=== PATIENT | female | born 1960 | race Caucasian/White ===

== ENCOUNTER → 2016-04-12 | Outpatient (CLI) | payer BC ==
[~2016-04-12] MED LIST: IBUP-103 PO; MULT-506 PO; ROLAIDS PO
[2016-04-12 14:18] LABS: BLOOD UREA NITROGEN 14 mg/dl (7-18); BUN/CREATININE RATIO 18.2 (10-20); CALCIUM 9.5 mg/dl (8.5-10.1); CARBON DIOXIDE 28 mmol/L (21-32); CHLORIDE 106 mmol/L (98-107); CHOLESTEROL 173 mg/dl (0-200); CREATININE 0.74 mg/dl (0.60-1.20); GLUCOSE 83 mg/dl (70-99); POTASSIUM 4.2 mmol/L (3.5-5.1); SODIUM 142 mmol/L (136-145)
[2016-04-12 14:45] LABS: CHOLESTEROL/HDL RATIO 2.8; HDL CHOLESTEROL 61 mg/dl; LDL CHOLESTEROL CALCULATED 98 mg/dl; TRIGLYCERIDES 69 mg/dl (0-150); VERY LOW DENSITY LIPOPROT CALC 14 mg/dl
== END | disposition home or self-care (01) ==
LOC: C.LABPVFM 09:58
PROVIDERS: ATTEND Nurse Practitioner
DX: Z13.220 Encounter for screening for lipoid disorders (principal); I10 Essential (primary) hypertension

== ENCOUNTER → 2016-10-11 | Outpatient (CLI) | payer BC ==
[2016-10-11 12:57] LABS: BLOOD UREA NITROGEN 18 mg/dl (7-18); BUN/CREATININE RATIO 24.1 (10-20); CALCIUM 9.7 mg/dl (8.5-10.1); CARBON DIOXIDE 29 mmol/L (21-32); CHLORIDE 106 mmol/L (98-107); CREATININE 0.75 mg/dl (0.60-1.20); GLUCOSE 91 mg/dl (70-99); POTASSIUM 4.2 mmol/L (3.5-5.1); SODIUM 139 mmol/L (136-145)
== END | disposition home or self-care (01) ==
LOC: C.LABPVFM 09:59
PROVIDERS: ATTEND Nurse Practitioner
DX: I10 Essential (primary) hypertension (principal)

== ENCOUNTER → 2016-12-12 | Outpatient (CLI) | payer BC ==
--- NOTE | 2016-12-12 14:35 | MAMMOGRAPHY REPORT ---
BILATERAL DIGITAL SCREENING MAMMOGRAM TOMOSYNTHESIS WITH CAD: 12/12/2016 CLINICAL HISTORY: Routine screening. Patient has no complaints. TECHNIQUE: Breast tomosynthesis in addition to standard 2D mammography was performed. Current study was also evaluated with a Computer Aided Detection (CAD) system. COMPARISON: Comparison is made to exams dated: 12/08/2015 mammogram, 12/05/2014 mammogram, 12/02/2013 mammogram, 12/01/2012 mammogram, 12/31/2011 mammogram, and 12/27/2010 mammogram - [facility]. BREAST COMPOSITION: There are scattered areas of fibroglandular density in both breasts. FINDINGS: No suspicious masses, calcifications, or areas of architectural distortion are noted in ei ther breast. There has been no significant interval change compared to prior exams. Scattered bilater al benign-appearing calcifications are not significantly changed. IMPRESSION: ACR BI-RADS CATEGORY 2: BENIGN There is no mammographic evidence of malignancy. A 1 year screening mammogram is recommended. The pa tient will receive written notification of the results. Approximately 10% of breast cancers are not detected with mammography. A negative mammographic report should not delay biopsy if a clinically suggestive mass is present. Sharon Roland M.D. /:12/12/2016 07:56:17 Senior Director Marketing: Vickie Cardoso, [facility] letter sent: Normal 1/2 BI-RADS Code: ACR BI-RADS Category 2: Benign
== END | disposition home or self-care (01) ==
LOC: C.MAMM 07:36
PROVIDERS: ATTEND Nurse Practitioner
DX: Z12.31 Encounter for screening mammogram for malignant neoplasm of breast (principal)

== ENCOUNTER → 2017-04-09 | Outpatient (CLI) | payer OTHER, BC | END | disposition home or self-care (01) | LOC: C.PAPS 11:49 | PROVIDERS: ATTEND Obstetrics & Gynecology | DX: Z12.4 Encounter for screening for malignant neoplasm of cervix (principal) ==

== ENCOUNTER → 2017-06-21 | Outpatient (CLI) | payer OTHER, BC ==
[2017-06-21 08:26] LABS: BLOOD UREA NITROGEN 16 mg/dl (7-18); CALCIUM 9.5 mg/dl (8.5-10.1); CARBON DIOXIDE 32 mmol/L (21-32); CHOLESTEROL 171 mg/dl (0-200); CREATININE 0.81 mg/dl (0.60-1.20); GLUCOSE 89 mg/dl (70-99); HEMOGLOBIN A1C 5.6 % (4.5-5.6); POTASSIUM 4.2 mmol/L (3.5-5.1); SODIUM 140 mmol/L (136-145)
[2017-06-21 08:29] LABS: LDL CHOLESTEROL CALCULATED 99 mg/dl
== END | disposition home or self-care (01) ==
LOC: C.LAB 07:26
PROVIDERS: ATTEND Nurse Practitioner
DX: I10 Essential (primary) hypertension (principal); R73.01 Impaired fasting glucose; Z13.220 Encounter for screening for lipoid disorders